=== PATIENT | male | born 1975 | race Asian ===

== ENCOUNTER 2020-06-30 23:59 | Emergency (ER) | payer OTHER ==
[2020-07-01 00:28] VITALS: BMI 26.6
[2020-07-01] MEDS ORDERED: IBUPROFEN 600 MG TABLET (FP) PO ONE ×2 (00:29→00:49)
[2020-07-01] MEDS ORDERED: SODIUM CHLORIDE 0.9% 500 ML INFUS.BAG IV ONE (00:31)
[2020-07-01 01:18] LABS: BASO % 0.4 % (0-2.0); EOS % 0.2 % (0-4.5); HEMATOCRIT 45.1 % (35.4-49); HEMOGLOBIN 14.9 GM/dL (11.7-16.9); LYMPH % 3.7 % (8-40); MCH 28.1 pg (25.7-33.7); MEAN CELL VOLUME 85.3 fl (80-96); MEAN PLT VOLUME 9.2 fl (7.5-11.1); MONO % 3.8 % (3.8-10.2); NEUT % 91.9 % (42.8-82.8); PLATELET COUNT 200 K/MM3 (134-434); RBC 5.29 M/mm3 (4.00-5.60); RDW 13.9 % (11.9-15.9); WHITE BLOOD COUNT 8.9 K/mm3 (4.0-10.0)
[2020-07-01 01:31] LABS: INR 1.17 (0.83-1.09); PROTHROMBIN TIME (PATIENT) 14.1 SEC (9.7-13.0)
[2020-07-01 01:47] LABS: CHLORIDE 108 mmol/L (98-107); POTASSIUM 5.2 mmol/L (3.5-5.1); SODIUM 137 mmol/L (136-145)
[2020-07-01 01:50] LABS: ALBUMIN 4.2 g/dl (3.4-5.0); BLOOD UREA NITROGEN 14.9 mg/dL (7-18); CALCIUM 9.4 mg/dL (8.5-10.1)
[2020-07-01 01:51] LABS: ANION GAP 7 MMOL/L (8-16); CO2 21 mmol/L (21-32); GLUCOSE,RANDOM 126 mg/dL (74-106); LIPASE 142 U/L (73-393); MAGNESIUM 2.1 mg/dL (1.8-2.4)
[2020-07-01 01:53] LABS: CREATININE 1.4 mg/dL (0.55-1.3); SGOT/AST 47 U/L (15-37); SGPT/ALT 62 U/L (13-61)
[2020-07-01 01:54] LABS: BILIRUBIN,DIRECT 0.1 mg/dL (0.0-0.2)
[2020-07-01 01:55] LABS: TOT PROT 7.7 g/dl (6.4-8.2)
[2020-07-01 01:56] LABS: ALK PHOS 100 U/L (45-117)
[2020-07-01 01:57] LABS: BILIRUBIN,TOTAL 0.6 mg/dL (0.2-1)
[2020-07-01 02:21] VITALS: BP 101/66; PULSE 91; TEMP 98.4
[2020-07-01 02:31] LABS: LDH 363 U/L (87-246)
== END 2020-07-01 03:25 | disposition home or self-care (01) ==
LOC: JER 23:59
DX: U07.1 COVID-19 (principal)
CPT/HCPCS: 36415; 71046-TC-FY; 80053; 82248; 82550; 82728; 83615; 83690; 83735; 84484; 85025; 85610; 86140; 93005; 93010; 99284-25